=== PATIENT | male | born 1965 | race Caucasian/White ===

== ENCOUNTER → 2019-07-13 | Outpatient (CLI) | payer BC ==
[~2019-07-13] MED LIST: ALDACTONE50 MG PO; DIAZEPAM PO; FISH OIL1000 MG PO; LANTUS100 U/ML SC; LASIX20 MG PO; LISINOPRIL10 MG PO; MAXALT10 MG PO; METFORMIN850 MG PO; MIDRIN PO; NEURONTIN100 MG PO; NORCO 325 MG-51 TAB PO; PROTONIX20 MG PO; ULTRAM50 MG PO; ZOFRAN ODT4 MG PO
== END ==
LOC: COL.RAD 07:16
DX: K50.90 Crohn's disease, unspecified, without complications (principal)
CPT/HCPCS: Q9967

== ENCOUNTER → 2019-08-24 | Outpatient (CLI) | payer BC ==
[~2019-08-24] VITALS: Ht 170.2 cm; Wt 115.1 kg
[~2019-08-24] MED LIST changes: +CBD OIL; +MICARDIS20 MG PO; +NOVOLOG FLEX100 U/ML SQ
[2019-08-24 07:55] VITALS: BP 147/83; PULSE 88
[2019-08-24 09:10] VITALS: BP 119/73; PULSE 65
== END ==
LOC: COL.RAD 07:24
DX: R59.0 Localized enlarged lymph nodes (principal)

== ENCOUNTER 2019-09-04 11:57 | Day surgery (SDC) | payer BC ==
[2019-09-04] VITALS (7 sets, daily range): BP systolic 142–164; BP diastolic 50–87; PULSE 81–96; TEMP 97.3–98
[~2019-09-04] VITALS: Ht 170.2 cm; Wt 113.2 kg
[~2019-09-04 11:57] MED LIST changes: -DIAZEPAM PO; -MICARDIS20 MG PO; +MICARDIS40 MG PO; +VALIUM 5MG T5 MG/TAB PO
[2019-09-04] MEDS ORDERED: VITAMIN D 400400 IU PO (13:28)
[2019-09-04] MEDS ORDERED: VITAMIN B COMPL1 SGL PO (13:29)
[2019-09-04] MEDS ORDERED: CURCUMIN95% PO (13:29)
[2019-09-04] MEDS ORDERED: OMEGA-3 1000 MG1 CAP PO (13:29)
[2019-09-04] MEDS ORDERED: MULTI VITAMINS1 TAB PO (13:30)
[2019-09-04] MEDS ORDERED: NORCO 325 MG-51 TAB PO (15:26)
--- NOTE | 2019-09-04 18:05 | NUR ---
Pt returned via cart to [facility] at 1620. Pt drowsy but oriented. VSS-see flowsheet. Pt tolerated jello and juice. Dressing intact to left axillary surgical site. Pt reported mild discomfort at a 3/10 to site, denied need for intervention. IV removed and pressure dressing applied. Discharge teaching completed with pt and , both verbalized understanding. Pt taken via wheelchair to private vehicle for dc home with driving.
== END 2019-09-04 18:05 | disposition home or self-care (01) ==
LOC: SDCO 11:57
DX: D36.0 Benign neoplasm of lymph nodes (principal); E11.9 Type 2 diabetes mellitus without complications; I73.9 Peripheral vascular disease, unspecified; E66.01 Morbid (severe) obesity due to excess calories; K74.60 Unspecified cirrhosis of liver; E78.5 Hyperlipidemia, unspecified; K21.9 Gastro-esophageal reflux disease without esophagitis; F41.9 Anxiety disorder, unspecified; N52.9 Male erectile dysfunction, unspecified; Z79.4 Long term (current) use of insulin; Z90.49 Acquired absence of other specified parts of digestive tract; Z80.1 Family history of malignant neoplasm of trachea, bronchus and lung; Z80.0 Family history of malignant neoplasm of digestive organs; Z88.8 Allergy status to other drugs, medicaments and biological substances; Z68.39 Body mass index [BMI] 39.0-39.9, adult
CPT/HCPCS: J1100; J1885; J2250; J2405; J2704; J3010; J7030